=== PATIENT | female | born 1965 | race African-American/Black ===

== ENCOUNTER 2017-10-06 21:34 | Inpatient (IN) | payer BC ==
[~2017-10-06] VITALS: Ht 154.9 cm; Wt 59.0 kg
[2017-10-06] MEDS ORDERED: IPRATROPIUM/ALBUTEROL 0.5-3(2.5)MG/3ML NEB HHN ONE ×2 (21:45→22:45)
[2017-10-06] MEDS ORDERED: METHYLPREDNISOLONE SOD SUCC 125 MG/2 ML VIAL IV ONE (21:45)
[2017-10-06 23:04] LABS: BASOPHILS % 0.6 % (0.0-2.0); EOSINOPHILS % 2.7 % (0.0-5.0); LYMPHOCYTES % 7.7 % (20.0-50.0); MEAN CORPUSCULAR HEMOGLOBIN 26.5 pg (28.0-32.0); MEAN CORPUSCULAR VOLUME 83.9 fL (81.0-99.0); MEAN PLATELET VOLUME 8.3 fl (7.4-10.4); MONOCYTES % 3.8 % (2.0-8.0); NEUTROPHILS % 85.2 % (40.0-76.0); PLATELET 229 x1000/uL (130-400); RED BLOOD CELL COUNT 4.53 mill/uL (4.2-5.4); RED CELL DISTRIBUTION WIDTH 14.1 % (11.6-14.6)
[2017-10-06 23:10] LABS: INR 1.1; PROTHROMBIN TIME 11.1 sec (9.4-11.6)
[2017-10-06 23:14] LABS: CHLORIDE 106 mEq/L (98-107)
[2017-10-06 23:19] LABS: TROPONIN I 0.03 ng/mL (0.00-0.04)
[2017-10-06] MEDS ORDERED: SODIUM CHLORIDE 0.9% 1,000 ML IV ONE (23:55)
[2017-10-07] MEDS ORDERED: MAGNESIUM 2 G PREMIX 50 ML IV ONE
[2017-10-07] MEDS ORDERED: IPRATROPIUM/ALBUTEROL 0.5-3(2.5)MG/3ML NEB HHN ONE ×2 (01:30)
[2017-10-07 03:35] VITALS: BP 127/64
[2017-10-07] MEDS ORDERED: DILT120C11 PO (05:21)
[2017-10-07] MEDS ORDERED: ALBU2.5V13 NEB (05:21)
[2017-10-07] MEDS ORDERED: AZIT250T12 PO (05:21)
[2017-10-07] MEDS: IPRATROPIUM/ALBUTEROL 0.5-3(2.5)MG/3ML NEB HHN SCH ×5 (06:00→21:25)
[2017-10-07] MEDS ORDERED: NON FORMULARY PATIENT HOME MED EA XX SCH (06:00)
[2017-10-07] MEDS: IPRATROPIUM/ALBUTEROL 0.5-3(2.5)MG/3ML NEB HHN PRN (06:10)
[2017-10-07 06:22] LABS: BG BASE EXCESS -2.9 mmol/L (-2.0-2.0); BG CARBOXYHEMOGLOBIN 0.7 % (0.5-1.5); BG DEOXYHEMOGLOBIN 11.9 % (0.0-5.0); BG FRACTION INSPIRED OXYGEN 21; BG HCO3 ACT 22.3 mmol/L (22.0-26.0); BG METHEMOGLOBIN 0.4 % (0.0-1.5); BG PCO2 40.4 mmHg (35.0-45.0); BG PO2 55.4 mmHg (75.0-100.0); BG SAMPLE SITE RIGHT RADIAL; BG TOTAL HEMOGLOBIN 13.8 g/dL (12.0-18.0); BG VENT MODE ROOM AIR
[2017-10-07] MEDS: METHYLPREDNISOLONE SOD SUCC 40 MG/ML VIAL IV SCH ×3 (06:25→21:59)
[2017-10-07 08:00] VITALS: BP 116/66
[2017-10-07] MEDS: AZITHROMYCIN 250 MG TABLET PO SCH (08:56)
[2017-10-07] MEDS: ENOXAPARIN 40MG/0.4ML SYR SUBCUT SCH (08:56)
[2017-10-07] MEDS: DILTIAZEM HCL 120MG CAPSULE CD 24HR PO SCH (08:57)
[2017-10-07 12:00] VITALS: BP 120/73
[2017-10-07 14:15] LABS: *AMPHETAMINES SCREEN URINE NEGATIVE (NEGATIVE); *BARBITURATES SCREEN URINE NEGATIVE (NEGATIVE); *BENZODIAZEPINES SCREEN URINE NEGATIVE (NEGATIVE); *COCAINE SCREEN URINE NEGATIVE (NEGATIVE); CANNABINOID URINE SCREEN NEGATIVE (NEGATIVE); METHADONE URINE SCREEN NEGATIVE (NEGATIVE); OPIATES URINE SCREEN NEGATIVE (NEGATIVE); PHENCYCLIDINE URINE SCREEN NEGATIVE (NEGATIVE)
[2017-10-07 15:45] LABS: CHLORIDE 107 mEq/L (98-107)
[2017-10-07 15:49] LABS: CREATINE KINASE MB FRACTION 1.8 ng/mL (0.5-3.6); TROPONIN I 0.04 ng/mL (0.00-0.04)
[2017-10-07 15:57] LABS: CREATINE KINASE 92 IU/L (26-192); CREATINE KINASE MB FRACTION 1.7 ng/mL (0.5-3.6); HDL CHOLESTEROL 81 mg/dL (40-59); LDL CHOLESTEROL 67 mg/dL (5-100); TROPONIN I 0.04 ng/mL (0.00-0.04)
[2017-10-07 16:00] VITALS: BP 119/69
[2017-10-07] MEDS: MONTELUKAST SODIUM 10MG TABLET PO SCH (16:19)
[2017-10-07 20:00] VITALS: BP 115/67
[2017-10-07] MEDS: FAMOTIDINE 20MG TABLET PO SCH (21:12)
[2017-10-07] MEDS: BUDESONIDE 0.5MG/2ML NEB HHN SCH (21:25)
[2017-10-08] VITALS: BP 116/62
[2017-10-08] MEDS: IPRATROPIUM/ALBUTEROL 0.5-3(2.5)MG/3ML NEB HHN SCH ×6 (01:45→20:45)
[2017-10-08 04:00] VITALS: BP 108/66
[2017-10-08 04:31] LABS: CLARITY URINE CLEAR (CLEAR); COLOR URINE YELLOW (YELLOW); KETONES URINE NEGATIVE (NEGATIVE); LEUKOCYTE ESTERASE URINE NEGATIVE (NEGATIVE); NITRITE URINE NEGATIVE (NEGATIVE); OCCULT BLOOD URINE NEGATIVE (NEGATIVE); PROTEIN URINE NEGATIVE (NEGATIVE); SPECIFIC GRAVITY URINE 1.011 (1.005-1.030); UROBILINOGEN URINE 0.2 E.U./dL (0.2-1.0)
[2017-10-08] MEDS: METHYLPREDNISOLONE SOD SUCC 40 MG/ML VIAL IV SCH ×2 (06:36→21:00)
[2017-10-08 07:47] LABS: BASOPHILS % 0.1 % (0.0-2.0); HEMATOCRIT. 36.8 % (36.0-48.0); HEMOGLOBIN. 11.8 g/dL (12.0-16.0); LYMPHOCYTES % 9.3 % (20.0-50.0); MEAN CORPUSCULAR VOLUME 84.5 fL (81.0-99.0); MONOCYTES % 2.8 % (2.0-8.0); NEUTROPHILS % 87.8 % (40.0-76.0); PLATELET 233 x1000/uL (130-400); RED BLOOD CELL COUNT 4.36 mill/uL (4.2-5.4); RED CELL DISTRIBUTION WIDTH 14.3 % (11.6-14.6)
[2017-10-08 08:00] VITALS: BP 108/62
[2017-10-08] MEDS: BUDESONIDE 0.5MG/2ML NEB HHN SCH ×2 (08:17→20:45)
[2017-10-08 08:19] LABS: CHLORIDE 108 mEq/L (98-107)
[2017-10-08] MEDS: AZITHROMYCIN 250 MG TABLET PO SCH (08:39)
[2017-10-08] MEDS: FAMOTIDINE 20MG TABLET PO SCH ×2 (08:40→21:00)
[2017-10-08] MEDS: DILTIAZEM HCL 120MG CAPSULE CD 24HR PO SCH (08:40)
[2017-10-08] MEDS: ENOXAPARIN 40MG/0.4ML SYR SUBCUT SCH (08:40)
[2017-10-08 16:00] VITALS: BP 118/68
[2017-10-08] MEDS: MONTELUKAST SODIUM 10MG TABLET PO SCH (17:11)
[2017-10-08 20:00] VITALS: BP 118/70
[2017-10-09] VITALS: BP 115/67
[2017-10-09] MEDS: IPRATROPIUM/ALBUTEROL 0.5-3(2.5)MG/3ML NEB HHN SCH ×5 (00:54→15:26)
[2017-10-09 04:00] VITALS: BP 120/63
[2017-10-09] MEDS: METHYLPREDNISOLONE SOD SUCC 40 MG/ML VIAL IV SCH ×3 (05:49→21:00)
[2017-10-09 06:07] LABS: HEMATOCRIT. 36.6 % (36.0-48.0); HEMOGLOBIN. 11.5 g/dL (12.0-16.0); MEAN CORPUSCULAR HEMOGLOBIN 26.4 pg (28.0-32.0); MEAN PLATELET VOLUME 8.7 fl (7.4-10.4); PLATELET 235 x1000/uL (130-400); RED BLOOD CELL COUNT 4.35 mill/uL (4.2-5.4); RED CELL DISTRIBUTION WIDTH 14.3 % (11.6-14.6)
[2017-10-09 07:39] LABS: CHLORIDE 106 mEq/L (98-107)
[2017-10-09 08:00] VITALS: BP 113/66
[2017-10-09] MEDS: BUDESONIDE 0.5MG/2ML NEB HHN SCH ×2 (08:50→20:00)
[2017-10-09] MEDS: AZITHROMYCIN 250 MG TABLET PO SCH (09:01)
[2017-10-09] MEDS: DILTIAZEM HCL 120MG CAPSULE CD 24HR PO SCH (09:01)
[2017-10-09] MEDS: FAMOTIDINE 20MG TABLET PO SCH ×2 (09:01→21:02)
[2017-10-09] MEDS: ENOXAPARIN 40MG/0.4ML SYR SUBCUT SCH (09:03)
[2017-10-09 12:00] VITALS: BP 121/65
[2017-10-09 12:01] LABS: BG BASE EXCESS -2.5 mmol/L (-2.0-2.0); BG CARBOXYHEMOGLOBIN 0.3 % (0.5-1.5); BG FRACTION INSPIRED OXYGEN 28; BG HCO3 ACT 21.6 mmol/L (22.0-26.0); BG METHEMOGLOBIN 0.8 % (0.0-1.5); BG OXYHEMOGLOBIN 95.9 % (94.0-97.0); BG PCO2 35.4 mmHg (35.0-45.0); BG PH 7.404 (7.350-7.450); BG PO2 92.9 mmHg (75.0-100.0); BG SAMPLE SITE RIGHT BRACHIAL; BG TOTAL HEMOGLOBIN 13.2 g/dL (12.0-18.0); BG VENT MODE NASAL CANNULA
[2017-10-09 13:49] LABS: PLATELET ESTIMATE NORMAL
[2017-10-09 16:00] VITALS: BP 105/64
[2017-10-09] MEDS: MONTELUKAST SODIUM 10MG TABLET PO SCH (17:16)
[2017-10-09 20:00] VITALS: BP 115/69
[2017-10-09] MEDS: IPRATROPIUM/ALBUTEROL 0.5-3(2.5)MG/3ML NEB HHN PRN (20:00)
[2017-10-10] VITALS: BP 101/64
[2017-10-10] MEDS: IPRATROPIUM/ALBUTEROL 0.5-3(2.5)MG/3ML NEB HHN SCH ×4 (00:33→11:53)
[2017-10-10 04:00] VITALS: BP 115/45
[2017-10-10] MEDS: METHYLPREDNISOLONE SOD SUCC 40 MG/ML VIAL IV SCH (05:46)
[2017-10-10 07:08] LABS: BASOPHILS % 0.1 % (0.0-2.0); HEMATOCRIT. 39.1 % (36.0-48.0); HEMOGLOBIN. 12.4 g/dL (12.0-16.0); LYMPHOCYTES % 8.3 % (20.0-50.0); MEAN CORPUSCULAR HEMOGLOBIN 26.6 pg (28.0-32.0); MEAN CORPUSCULAR VOLUME 83.8 fL (81.0-99.0); MEAN PLATELET VOLUME 8.8 fl (7.4-10.4); MONOCYTES % 3.7 % (2.0-8.0); NEUTROPHILS % 87.9 % (40.0-76.0); PLATELET 257 x1000/uL (130-400); RED BLOOD CELL COUNT 4.67 mill/uL (4.2-5.4); RED CELL DISTRIBUTION WIDTH 14.4 % (11.6-14.6)
[2017-10-10 07:09] LABS: CHLORIDE 104 mEq/L (98-107)
[2017-10-10 08:00] VITALS: BP 132/78
[2017-10-10] MEDS: FAMOTIDINE 20MG TABLET PO SCH (08:04)
[2017-10-10] MEDS: AZITHROMYCIN 250 MG TABLET PO SCH (08:04)
[2017-10-10] MEDS: DILTIAZEM HCL 120MG CAPSULE CD 24HR PO SCH (08:05)
[2017-10-10] MEDS: ENOXAPARIN 40MG/0.4ML SYR SUBCUT SCH ×2 (08:06→09:00)
[2017-10-10] MEDS: BUDESONIDE 0.5MG/2ML NEB HHN SCH (08:26)
[2017-10-10 12:00] VITALS: BP 116/64
== END 2017-10-10 14:30 | disposition home or self-care (01) | DRG 189 ==
LOC: ER 22:34 → 7WST 10-07 00:36 → ENRESERV 10-07 02:34
PROVIDERS: ADMIT Internal Medicine; ATTEND Internal Medicine
DX: J96.01 Acute respiratory failure with hypoxia (principal); I49.5 Sick sinus syndrome; J45.901 Unspecified asthma with (acute) exacerbation; J44.9 Chronic obstructive pulmonary disease, unspecified; Z95.0 Presence of cardiac pacemaker; E07.81 Sick-euthyroid syndrome; D72.829 Elevated white blood cell count, unspecified; R73.9 Hyperglycemia, unspecified; Z91.018 Allergy to other foods; Z79.899 Other long term (current) drug therapy
CPT/HCPCS: 36415; 36600; 71045; 80048; 80053; 80061; 80305; 81003; 82375; 82550; 82553; 82805; 83036; 83880; 84443; 84484; 85025; 85610; 87040; 87086; 87804; 93005; 93306; 93970; 94618; 94640; 96365; 99285; J1650; J2920; J2930; J3475; J7030; J7620; J7626